=== PATIENT | male | born 1970 ===

== ENCOUNTER 2017-01-21 13:21 | Emergency (ER) | payer OTHER ==
[2017-01-21 13:29] VITALS: BP 141/89
--- NOTE | 2017-01-21 17:53 | ED ---
- HPI Summary HPI Summary: 46 male presents with complaints of a needle stick while down in the [facility].R at [facility]. States the bovie tip stuck his left forearm, lasting seconds. Minimal to no megan presents on exam. No bleeding noted. Bovie tip was used before being stuck. Patient is not concerned for hepatitis or HIV as he does have access to patient records however is following needlestick protocol. Did not ask source to obtain bloodwork. No other complaints, no pain and no PMHx. 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 Mechanism of Injury: bovie needle stuck left forearm during surgical procedure Needlestick: Hollow Needle Blood on Needle: Yes - was being used to burn tissue of source patient Depth of Needlestick: Puncture - small, superficial Bleeding at Site: No Body Fluid Exposure: Visceral Fluids Treatment RETURN TO FACTORY CLERK: Cleaned Wound - Source Information HIV: Unknown - however more than likely no due to knowing patient's histroy before surgical procedure and typically patients with positive HIV/Hep exposure is noted before start of surgery Hepatitis: Unknown - read above - Risk Factors Needlestick Risk Factor: Low Risk: Short Duration, Low Risk: Source HIV/ Hepatitis B Negative/Asymptomatic PMH/Surg Hx/FS Hx/Imm Hx Endocrine/Hematology History: Reports: Hx Thyroid Disease Cardiovascular History: Reports: Hx Hypertension - Surgical History Surgery Procedure, Year, and Place: tonsils; inguinal hernia; appy - Immunization History Date of Tetanus Vaccine: UTD Immunizations Up to Date: Yes Infectious Disease History: No Infectious Disease History: Denies: Hx Clostridium Difficile, Hx Hepatitis, Hx Human Immunodeficiency Virus (HIV), Hx of Known/Suspected MRSA, Hx Shingles, Hx Tuberculosis, Hx Known/ Suspected VRE, Hx Known/Suspected VRSA, History Other Infectious Disease, Traveled Outside the [place] in Last 30 Days - Family History Known Family History: Positive: Other - noncontibutory - Social History Alcohol Use: Daily Substance Use Type: Reports: None Smoking Status (MU): Never Smoked Tobacco Review of Systems Constitutional: Negative Cardiovascular: Negative Respiratory: Negative Positive: Other - needlestick All Other Systems Reviewed And Are Negative: Yes Physical Exam Triage Information Reviewed: Yes Vital Signs On Initial Exam: Initial Vitals Temp Pulse Resp Pulse Ox 96.0 F 62 20 99 01/21/17 13:26 01/21/17 13:26 01/21/17 13:26 01/21/17 13:26 Vital Signs Reviewed: Yes Appearance: Positive: Well-Appearing, No Pain Distress, Well-Nourished Skin: Positive: Warm, Skin Color Reflects Adequate Perfusion, Dry, Erythema @ - minmal to no erythema at site of needlestick, very small pinpoint wound. Negative: Cold, Numb, Pale Head/Face: Positive: Normal Head/Face Inspection Eyes: Positive: Conjunctiva Clear ENT: Positive: Hearing grossly normal Neck: Positive: Supple, Nontender Respiratory/Lung Sounds: Positive: Clear to Auscultation, Breath Sounds Present. Negative: Rales, Rhonchi, Wheezes Cardiovascular: Positive: Normal, RRR, Pulses are Symmetrical in both Upper and Lower Extremities. Negative: Murmur, Rub Musculoskeletal: Positive: Normal, Strength/ROM Intact Neurological: Positive: Normal, Sensory/Motor Intact, Alert, Oriented to Person Place, Time Diagnostics - Vital Signs Vital Signs Temp Pulse Resp BP Pulse Ox 01/21/17 13:28 96.0 F 64 20 141/89 98 01/21/17 13:26 96.0 F 62 20 99 - Laboratory Lab Statement: Any lab studies that have been ordered have been reviewed, and results considered in the medical decision making process. Needlestick Course/Dx - Course Course Of Treatment: followed needlestick exposure protocol. baseline labs obtained for HIV and Hep. Tetanus and immunizations UTD. Patient of no concern for Hep and HIV prophylactic treatment. Was educated on starting PEP however declined at this time. Plans to follow up with source patient to obtain bloodwork if permissible. Close follow up with employee health and PCP. - Diagnoses Provider Diagnoses: Needlestick injury accident with exposure to body fluid Discharge - Discharge Plan Condition: Stable Disposition: HOME Patient Education Materials: Body Substance Exposure (ED) Referrals: No Primary Care Phys,NOPCP [Primary Care Provider] - Additional Instructions: Follow up with Gita Vicente on Tuesday. Prophylactic medication is available. Try and figure out if patient is willing to share medical information pertaining to blood bourne illnesses. Any new symptoms or worsening symptoms please return to ED. Follow up with PCP.
[2017-01-21 22:53] LABS: Rapid HIV INT CONT QC Line Present
[2017-01-21 22:54] LABS: Rapid HIV Kit Lot# F308002
== END 2017-01-21 16:10 | disposition home or self-care (01) ==
LOC: ED 13:21
DX: S51.832A Puncture wound without foreign body of left forearm, initial encounter (principal); Z77.21 Contact with and (suspected) exposure to potentially hazardous body fluids; W46.0XXA Contact with hypodermic needle, initial encounter; Y93.89 Activity, other specified; Y92.234 Operating room of hospital as the place of occurrence of the external cause
CPT/HCPCS: 36415; 86703; 86706; 86803; 87340; 99282